=== PATIENT | female | born 1955 | race Hispanic/Latino ===

== ENCOUNTER 2017-08-21 11:05 | Emergency (ER) | payer MEDICAID ==
[~2017-08-21 11:05] MED LIST: ATOR10 PO; CITA40TA6 PO; CLOP75TA14 PO; EZET10 PO; LINA5TAB PO; METF-526 PO; PANT40TA25 PO; RISP0.2515 PO; RISP0.5T50 PO; SOLI5 PO
== END 2017-08-21 13:32 | disposition home or self-care (01) ==
LOC: EDH 11:05
DX: N76.6 Ulceration of vulva (principal); I25.10 Atherosclerotic heart disease of native coronary artery without angina pectoris; E11.9 Type 2 diabetes mellitus without complications; I10 Essential (primary) hypertension

== ENCOUNTER 2019-08-17 14:19 | Emergency (ER) | payer MEDICAID ==
[~2019-08-17 14:19] MED LIST changes: +ASPI-1181 PO; +BUSP7.5T7 PO; -EZET10 PO; +EZET10TA13 PO
[2019-08-17 15:12] LABS: BASOPHILS % (AUTO) 0.3 % (0.0-5.0); EOSINOPHILS % (AUTO) 3.2 % (0.0-8.0); HEMATOCRIT 29.2 % (36-48); LYMPHOCYTES % (AUTO) 22.4 % (21.0-51.0); MEAN CORPUSCULAR HEMOGLOBIN 23.2 pg (27.0-33.0); MEAN CORPUSCULAR HGB CONC 29.8 g/dL (32.0-36.0); MEAN CORPUSCULAR VOLUME 77.9 fL (79-99); MONOCYTES % (AUTO) 6.3 % (3.0-13.0); NEUTROPHILS % (AUTO) 67.6 % (40.0-77.0); PLATELET COUNT (AUTO) 420 K/uL (130-400); RED BLOOD CELL COUNT(AUTO) 3.75 MIL/uL (4.00-5.50); RED CELL DISTRIBUTION WIDTH 22.2 % (11.0-15.5); WHITE BLOOD COUNT (AUTO) 9.1 K/uL (4.8-10.8)
[2019-08-17 15:28] LABS: INR 1.04 (0.85-1.15); PARTIAL THROMBOPLASTIN TIME 26.6 SEC (26.3-35.5); PROTHROMBIN TIME 10.9 SEC (9.6-11.6)
[2019-08-17 15:36] LABS: CREATININE 0.6 mg/dL (0.5-1.5); POTASSIUM 3.9 mmol/L (3.5-5.1)
[2019-08-17 15:41] LABS: ALBUMIN 3.5 g/dL (3.5-5.0); BILIRUBIN,TOTAL 0.3 mg/dL (0.2-1.0); TOTAL PROTEIN, SERUM 8.1 g/dL (6.0-8.3)
== END 2019-08-17 19:08 | disposition home or self-care (01) ==
LOC: EDH 14:19
DX: T81.30XA Disruption of wound, unspecified, initial encounter (principal); L76.22 Postprocedural hemorrhage of skin and subcutaneous tissue following other procedure; E11.9 Type 2 diabetes mellitus without complications; I10 Essential (primary) hypertension; Z98.890 Other specified postprocedural states; Z86.73 Personal history of transient ischemic attack (TIA), and cerebral infarction without residual deficits
CPT/HCPCS: 36415; 80053; 85025; 85610; 85730

== ENCOUNTER 2019-09-16 12:36 | Inpatient (IN) | payer MEDICAID ==
[~2019-09-16] VITALS: Ht 157.5 cm; Wt 82.1 kg
[2019-09-16 13:02] LABS: BASOPHILS % (AUTO) 0.2 % (0.0-5.0); LYMPHOCYTES % (AUTO) 5.3 % (21.0-51.0); MEAN CORPUSCULAR HEMOGLOBIN 22.2 pg (27.0-33.0); MEAN CORPUSCULAR HGB CONC 27.1 g/dL (32.0-36.0); MEAN CORPUSCULAR VOLUME 81.6 fL (79-99); MONOCYTES % (AUTO) 2.3 % (3.0-13.0); NEUTROPHILS % (AUTO) 91.4 % (40.0-77.0); NUCLEATED RED BLOOD CELLS 0.3 % (0.0-0.19); PLATELET COUNT (AUTO) 413 K/uL (130-400); RED BLOOD CELL COUNT(AUTO) 1.58 MIL/uL (4.00-5.50); RED CELL DISTRIBUTION WIDTH 16.9 % (11.0-15.5)
[2019-09-16 13:05] LABS: HEMATOCRIT 12.9 % (36-48)
[2019-09-16 13:12] LABS: POTASSIUM 3.9 mmol/L (3.5-5.1)
[2019-09-16 13:14] LABS: INR 1.06 (0.85-1.15); PARTIAL THROMBOPLASTIN TIME 21.8 SEC (26.3-35.5); PROTHROMBIN TIME 11.4 SEC (9.6-11.6)
[2019-09-16 13:17] LABS: ALBUMIN 2.8 g/dL (3.5-5.0); BILIRUBIN,TOTAL 0.2 mg/dL (0.2-1.0); TOTAL PROTEIN, SERUM 6.8 g/dL (6.0-8.3)
[2019-09-16 13:36] LABS: LYMPHOCYTES % (MANUAL) 4 % (22-44); MAN.DIFF COMMENT-IMPRESSION MANUAL DIFFERENTIAL; MONOCYTES % (MANUAL) 1 % (2-9); SEGMENTED NEUTROPHILS % 95 % (40-70)
[2019-09-16 13:37] LABS: PLATELET MORPHOLOGY COMMENT SLIGHT INCREASED
[2019-09-16] MEDS ORDERED: SODIUM CHLORIDE 0.9% 250 ML IV ONE (14:06)
[2019-09-16] MEDS ORDERED: PANTOPRAZOLE SODIUM 80 MG in SODIUM CHLORIDE 0.9% 100 ML IV SCH (16:30)
[2019-09-16] MEDS ORDERED: ACETAMINOPHEN 325 MG TAB PO PRN (16:30)
[2019-09-16] MEDS ORDERED: ONDANSETRON HCL 4 MG/2 ML VIAL IVP PRN (16:30)
[2019-09-16] MEDS ORDERED: SODIUM CHLORIDE 0.9% 1000ML 1,000 ML IV ONE (18:51)
[2019-09-16 21:09] LABS: HEMATOCRIT 21.2 % (36-48)
[2019-09-17] MEDS ORDERED: SODIUM CHLORIDE 0.9% 100 ML IV ONE (04:29)
[2019-09-17] MEDS ORDERED: GLIP10TA19 PO (06:44)
[2019-09-17] MEDS ORDERED: SOLI5TAB6 PO (06:44)
[2019-09-17] MEDS ORDERED: FERR-82 PO (06:44)
[2019-09-17 07:59] LABS: HEMATOCRIT 22.6 % (36-48)
[2019-09-17] MEDS ORDERED: METHYLPREDNISOLONE SOD SUCC 40MG/ML 1ML ONE (08:41)
[2019-09-17] MEDS ORDERED: OSELTAMIVIR PHOSPHATE 75 MG CAP ONE (08:41)
[2019-09-17 12:10] VITALS: BP 160/60
[2019-09-17 12:51] VITALS: BP 142/69
[2019-09-17] MEDS: SODIUM CHLORIDE 0.9% 1000ML 1,000 ML IV SCH ×2 (13:30→23:20)
--- NOTE | 2019-09-17 14:07 | NUR ---
INITIAL Patient lives with spouse, Theo Stanley, [phone]. Patient has [facility] X 3 a week. PHC with [facility] X 48 1/2 hours a week. DME: wheelchair, hospital bed, shower chair, BPM, glucometer (no insulin). Patient needs help with ADL's and does not drive. Family assisted with transportation. PCP is Dr. Tay Hernandez. Pharmacy is [facility] located in [place]. DCP is home. Addendum: 09/17/19 at 1410 by MIKE HALL SS Amended: Links added.
[2019-09-17] MEDS ORDERED: EPOETIN ALFA 10,000 UNIT/ML VIAL SQ SCH (14:30)
[2019-09-17] MEDS ORDERED: IRON SUCROSE COMPLEX 300 MG in SODIUM CHLORIDE 0.9% 250 ML IV SCH (14:30)
[2019-09-17] MEDS ORDERED: COMPOUND IV MISC 1 EACH IVSOLN MISC PRN (15:30)
[2019-09-17 16:33] VITALS: BP 134/66
[2019-09-17 17:42] LABS: HEMATOCRIT 24.9 % (36-48)
[2019-09-17 19:40] VITALS: BP 132/65
[2019-09-17] MEDS: PANTOPRAZOLE SODIUM 40 MG TABLET.DR PO SCH (22:03)
[2019-09-18] VITALS (7 sets, daily range): BP systolic 105–163; BP diastolic 58–77
[2019-09-18 00:27] LABS: HEMATOCRIT 20.6 % (36-48)
--- NOTE | 2019-09-18 00:30 | NUR ---
JENSEN Delvalle CLINICAL LABORATORY MANAGER PAGED REGARDING [facility] CALL, ORDER RECEIVED AND PLACED IN COMPUTER [id number]-[id number] TO FIND ON PATIENT BLOOD BAND, LAB CALLED AND WILL ORDER AND DRAW ANOTHER TYPE AND SCREEN.
[2019-09-18] MEDS ORDERED: SODIUM CHLORIDE 0.9% 100 ML IV ONE (01:13)
[2019-09-18] MEDS: SODIUM CHLORIDE 0.9% 1000ML 1,000 ML IV SCH (07:38)
[2019-09-18 08:33] LABS: BASOPHILS % (AUTO) 0.4 % (0.0-5.0); EOSINOPHILS % (AUTO) 7.3 % (0.0-8.0); HEMATOCRIT 25.2 % (36-48); LYMPHOCYTES % (AUTO) 23.3 % (21.0-51.0); MEAN CORPUSCULAR HEMOGLOBIN 26.5 pg (27.0-33.0); MEAN CORPUSCULAR HGB CONC 31.7 g/dL (32.0-36.0); MEAN CORPUSCULAR VOLUME 83.4 fL (79-99); MONOCYTES % (AUTO) 7.8 % (3.0-13.0); NEUTROPHILS % (AUTO) 60.2 % (40.0-77.0); PLATELET COUNT (AUTO) 369 K/uL (130-400); RED BLOOD CELL COUNT(AUTO) 3.02 MIL/uL (4.00-5.50); RED CELL DISTRIBUTION WIDTH 16.1 % (11.0-15.5); WHITE BLOOD COUNT (AUTO) 8.2 K/uL (4.8-10.8)
[2019-09-18] MEDS ORDERED: IRON SUCROSE COMPLEX 400 MG in SODIUM CHLORIDE 0.9% 250 ML IV SCH (09:00)
[2019-09-18] MEDS: PANTOPRAZOLE SODIUM 40 MG TABLET.DR PO SCH ×2 (09:21→21:50)
[2019-09-18 09:23] LABS: CREATININE 0.7 mg/dL (0.5-1.5); POTASSIUM 3.4 mmol/L (3.5-5.1)
[2019-09-18 16:06] LABS: HEMATOCRIT 27.4 % (36-48)
--- NOTE | 2019-09-18 17:50 | NUR ---
DR. Hoffmann IS ROUNDING ON THIS PATIENT AT THIS TIME. ASKED FOR PREVIOUS PATHOLOGY REPORT AND FOUND DOCS IN HPF/ONE CONTENT. RELAYED RESULTS TO MD. PER DR. Hoffmann, PATHOLOGY RESULTS NEED TO BE REPORTED TO DR. ROSENBAUM TOMORROW.
[2019-09-18 20:01] LABS: HEMATOCRIT 27.8 % (36-48)
[2019-09-18] MEDS ORDERED: RISPERIDONE 0.5 MG TABLET PO SCH (21:00)
[2019-09-18] MEDS ORDERED: BUSPIRONE HCL 5 MG TABLET PO PRN (21:00)
[2019-09-18] MEDS ORDERED: ATORVASTATIN CALCIUM 10 MG TABLET PO SCH (21:00)
[2019-09-19 04:00] VITALS: BP 145/70
[2019-09-19 04:17] LABS: BASOPHILS % (AUTO) 0.6 % (0.0-5.0); EOSINOPHILS % (AUTO) 5.1 % (0.0-8.0); HEMATOCRIT 27.7 % (36-48); LYMPHOCYTES % (AUTO) 23.4 % (21.0-51.0); MEAN CORPUSCULAR HEMOGLOBIN 26.4 pg (27.0-33.0); MEAN CORPUSCULAR HGB CONC 31.4 g/dL (32.0-36.0); MEAN CORPUSCULAR VOLUME 84.2 fL (79-99); MONOCYTES % (AUTO) 7.3 % (3.0-13.0); NEUTROPHILS % (AUTO) 62.4 % (40.0-77.0); NUCLEATED RED BLOOD CELLS 0.7 % (0.0-0.19); PLATELET COUNT (AUTO) 424 K/uL (130-400); RED BLOOD CELL COUNT(AUTO) 3.29 MIL/uL (4.00-5.50); RED CELL DISTRIBUTION WIDTH 17.2 % (11.0-15.5); WHITE BLOOD COUNT (AUTO) 8.6 K/uL (4.8-10.8)
[2019-09-19 04:37] LABS: CREATININE 0.6 mg/dL (0.5-1.5)
[2019-09-19] MEDS: SODIUM CHLORIDE 0.9% 1000ML 1,000 ML IV SCH (05:31)
[2019-09-19 07:00] VITALS: BP 144/71
[2019-09-19] MEDS ORDERED: LIDOCAINE HCL-MPF 1% 2ML VIAL IV PRN (07:00)
[2019-09-19] MEDS ORDERED: POTASSIUM CHLORIDE 20 MEQ ERTAB PO PRN (07:00)
[2019-09-19] MEDS ORDERED: POTASSIUM CHLORIDE 20MEQ/100ML 100 ML IV PRN (07:00)
[2019-09-19] MEDS: FERROUS SULFATE 325 MG TABLET.DR PO SCH ×2 (08:00→09:00)
[2019-09-19] MEDS: METFORMIN HCL 500 MG TAB.SR.24H PO SCH ×3 (08:00→17:00)
[2019-09-19] MEDS ORDERED: CITALOPRAM 20 MG TABLET PO SCH (09:00)
[2019-09-19] MEDS ORDERED: RISPERIDONE 0.25 MG PO SCH (09:00)
[2019-09-19] MEDS ORDERED: GLIPIZIDE XL 10MG TAB PO SCH (09:00)
[2019-09-19] MEDS ORDERED: FERROUS SULFATE 325 MG TABLET.DR PO SCH (09:00)
[2019-09-19] MEDS: PANTOPRAZOLE SODIUM 40 MG TABLET.DR PO SCH (09:00)
[2019-09-19 11:00] VITALS: BP 127/69
[2019-09-19] MEDS ORDERED: FERR-82 PO (15:43)
[2019-09-19 16:09] VITALS: BP 114/50
--- NOTE | 2019-09-19 19:23 | NUR ---
CM NOTE faxed prior auth form for ambulance to [facility] form filled and faxed ,approval received from David lieberman to proceed with EMS transport. updated primary nurse
[2019-09-19] MEDS ORDERED: RISPERIDONE 0.5 MG TABLET PO SCH (21:00)
== END 2019-09-19 20:50 | disposition home or self-care (01) | DRG 241 ==
LOC: EDH 12:36 → EDHIP 12:37 → 2DH 09-17 12:28
PROVIDERS: ADMIT Internal Medicine; ATTEND Internal Medicine
PROC: 30233N1 Transfusion of Nonautologous Red Blood Cells into Peripheral Vein, Percutaneous Approach (ICD-10-PCS; principal; 2019-09-16)
PROC: 0DJ08ZZ Inspection of Upper Intestinal Tract, Via Natural or Artificial Opening Endoscopic (ICD-10-PCS; 2019-09-17)
DX: K29.01 Acute gastritis with bleeding (principal); D62 Acute posthemorrhagic anemia; I69.351 Hemiplegia and hemiparesis following cerebral infarction affecting right dominant side; K25.4 Chronic or unspecified gastric ulcer with hemorrhage; E11.9 Type 2 diabetes mellitus without complications; N76.5 Ulceration of vagina; I10 Essential (primary) hypertension; E66.9 Obesity, unspecified; Z68.33 Body mass index [BMI] 33.0-33.9, adult; Z82.0 Family history of epilepsy and other diseases of the nervous system; Z83.3 Family history of diabetes mellitus; Z82.5 Family history of asthma and other chronic lower respiratory diseases; Z82.3 Family history of stroke; Z82.49 Family history of ischemic heart disease and other diseases of the circulatory system; R55 Syncope and collapse
CPT/HCPCS: 36415; 36430; 43235; 71045; 76856; 80048; 80053; 82270; 82550; 82948; 83540; 83550; 84484; 85014; 85018; 85025; 85610; 85730; 86677; 86850; 86900; 86901; 86922; 93005; C9113; G0378; J0885; J1756; J2920; J3480; J3490; J7030; P9016

== ENCOUNTER 2019-10-06 02:11 | Inpatient (IN) | payer MEDICAID ==
[~2019-10-06 02:11] MED LIST changes: -ASPI-1181 PO; +ASPI-1443 PO; +FERR-82 PO; +GLIP10TA19 PO; -PANT40TA25 PO; +PANT40TA54 PO; +SOLI5TAB6 PO
[2019-10-06 02:56] LABS: BASOPHILS % (AUTO) 0.3 % (0.0-5.0); EOSINOPHILS % (AUTO) 1.4 % (0.0-8.0); HEMATOCRIT 24.1 % (36-48); LYMPHOCYTES % (AUTO) 16.9 % (21.0-51.0); MEAN CORPUSCULAR HEMOGLOBIN 28.8 pg (27.0-33.0); MEAN CORPUSCULAR HGB CONC 31.5 g/dL (32.0-36.0); MEAN CORPUSCULAR VOLUME 91.3 fL (79-99); MONOCYTES % (AUTO) 4.3 % (3.0-13.0); NEUTROPHILS % (AUTO) 76.5 % (40.0-77.0); PLATELET COUNT (AUTO) 385 K/uL (130-400); RED BLOOD CELL COUNT(AUTO) 2.64 MIL/uL (4.00-5.50); RED CELL DISTRIBUTION WIDTH 18.1 % (11.0-15.5); WHITE BLOOD COUNT (AUTO) 11.7 K/uL (4.8-10.8)
[2019-10-06 03:05] LABS: INR 1.01 (0.85-1.15); PARTIAL THROMBOPLASTIN TIME 21.9 SEC (26.3-35.5); PROTHROMBIN TIME 10.9 SEC (9.6-11.6)
[2019-10-06 03:06] LABS: CARBON DIOXIDE 29 mmol/L (21-32); CHLORIDE 102 mmol/L (101-111); CREATININE 1.1 mg/dL (0.5-1.5); GLUCOSE,RANDOM 235 mg/dL (70-105); POTASSIUM 3.7 mmol/L (3.5-5.1); SODIUM SERUM 136 mmol/L (136-145); UREA NITROGEN, BLOOD 26 mg/dL (7-18)
[2019-10-06 03:12] LABS: ALANINE AMINOTRANSFERASE 11 U/L (12-78); ALBUMIN 2.5 g/dL (3.5-5.0); ASPARTATE AMINOTRANSFERASE 5 U/L (10-37); BILIRUBIN,TOTAL 0.2 mg/dL (0.2-1.0); CREATINE KINASE, TOTAL 17 U/L (21-232); TOTAL PROTEIN, SERUM 6.1 g/dL (6.0-8.3)
[2019-10-06 03:28] LABS: APPEARANCE,URINE Turbid (CLEAR); BILIRUBIN,URINE Negative (NEGATIVE); COLOR,URINE Dark Yellow (YELLOW); GLUCOSE, URINE (UA) Negative (NEGATIVE); KETONES,URINE Trace mg/dL (NEGATIVE); LEUKOCYTE ESTERASE ,URINE Large (NEGATIVE); NITRATE,URINE Negative (NEGATIVE); OCCULT BLOOD,URINE Moderate (NEGATIVE); PROTEIN,URINE POS 1+ mg/dL (NEGATIVE)
[2019-10-06] MEDS ORDERED: ONDANSETRON HCL 4 MG/2 ML VIAL IV PRN (03:30)
[2019-10-06] MEDS ORDERED: MORPHINE SULFATE 2 MG/ML 1ML SYG IV PRN (03:30)
[2019-10-06] MEDS ORDERED: LACTULOSE 20 GM/30 ML UDCUP PO PRN (03:30)
[2019-10-06] MEDS ORDERED: ACETAMINOPHEN 325 MG TAB PO PRN ×2 (03:30)
[2019-10-06 03:42] LABS: BACTERIA,URINE Many /HPF (None Seen); WBC,URINE 26-50 /HPF (0-1)
[2019-10-06] MEDS ORDERED: FAMOTIDINE/PF 20 MG/2 ML VIAL IV ONE (03:46)
[2019-10-06] MEDS ORDERED: ONDANSETRON HCL 4 MG/2 ML VIAL ONE (03:56)
[2019-10-06] MEDS ORDERED: METOCLOPRAMIDE 10 MG/2 ML VIAL ONE (04:06)
[2019-10-06] MEDS ORDERED: CEFTRIAXONE SODIUM 1 GM ONE (04:29)
[2019-10-06 05:50] VITALS: BP 96/50
[2019-10-06] MEDS ORDERED: PANTOPRAZOLE SODIUM 80 MG in SODIUM CHLORIDE 0.9% 100 ML IV SCH (06:00)
[2019-10-06] MEDS: CEFTRIAXONE SODIUM 1 GM IVP SCH (06:00)
[2019-10-06] MEDS: SODIUM CHLORIDE 0.9% 1000ML 1,000 ML IV SCH ×3 (06:45→23:24)
[2019-10-06] MEDS: INSULIN HUMULIN R 100 UNIT/ML 3ML SQ SCH ×4 (06:53→21:00)
[2019-10-06 07:05] LABS: HEMATOCRIT 30.4 % (36-48)
[2019-10-06 07:30] VITALS: BP 103/52
--- NOTE | 2019-10-06 08:17 | NUR ---
GRIFFIN Davis CALLED FOR L.A. RESULTS OF 3.3 ORDERS TO FOLLOW IVF MAINTAIN OF 75 [facility], AND LACTIC ACID LAB TO BE DONE AT 1700 TODAY.
--- NOTE | 2019-10-06 09:05 | NUR ---
DR. MCKINNEY WAS CALLED , FOR ONCOLOGY CONSULTATION . DATA GIVEN, PLACED ON HIS CENSES .
[2019-10-06 11:00] VITALS: BP 109/60
[2019-10-06 11:59] LABS: HEMATOCRIT 26.3 % (36-48)
[2019-10-06 16:07] VITALS: BP 98/51
--- NOTE | 2019-10-06 16:40 | NUR ---
DR. GRIDER CALLED . UPDATE GIVEN, REGARDING, DR. MCKINNEY ,EVAL. AND PT IS NOT HAVING ACTIVE BLEEDING, FROM HER LABIA . , AREA WILL SPEAK WITH DR. MCKINNEY REGARDING HER HX , AT PRESENT , WILL KEEP ASSESSING ANY BLEEDING . FROM SITE, NO ORDERS ,
--- NOTE | 2019-10-06 16:55 | NUR ---
INITIAL SW spoke with patient's spouse, hTeo Stanley, [phone]. He states that patient has [facility] X 3 week for wound care. PHC with [facility] X 48.5 hours a week. DME: glucometer (no insulin) shower chair, hospital bed, wheelchair. Patient is bed bound and unable to complete ADL's without assistance. PCP is Dr. Tay Hernandez from [facility]. Pharmacy is [facility] located in [place]. DCP is home. Addendum: 10/06/19 at 1658 by MIKE HALL SS Amended: Links added.
[2019-10-06 18:01] LABS: HEMATOCRIT 24.8 % (36-48)
[2019-10-06 19:39] VITALS: BP 107/55
[2019-10-06 23:26] VITALS: BP 121/46
[2019-10-07 03:20] VITALS: BP 96/48
[2019-10-07] MEDS: CEFTRIAXONE SODIUM 1 GM IVP SCH (04:09)
[2019-10-07 04:44] LABS: BASOPHILS % (AUTO) 0.6 % (0.0-5.0); EOSINOPHILS % (AUTO) 1.4 % (0.0-8.0); HEMATOCRIT 23.5 % (36-48); LYMPHOCYTES % (AUTO) 32.9 % (21.0-51.0); MEAN CORPUSCULAR HEMOGLOBIN 28.6 pg (27.0-33.0); MEAN CORPUSCULAR HGB CONC 30.2 g/dL (32.0-36.0); MEAN CORPUSCULAR VOLUME 94.8 fL (79-99); MONOCYTES % (AUTO) 6.4 % (3.0-13.0); NEUTROPHILS % (AUTO) 57.8 % (40.0-77.0); PLATELET COUNT (AUTO) 299 K/uL (130-400); RED BLOOD CELL COUNT(AUTO) 2.48 MIL/uL (4.00-5.50); RED CELL DISTRIBUTION WIDTH 17.4 % (11.0-15.5); WHITE BLOOD COUNT (AUTO) 6.4 K/uL (4.8-10.8)
[2019-10-07 05:03] LABS: ALBUMIN 2.3 g/dL (3.5-5.0); BILIRUBIN,TOTAL 0.1 mg/dL (0.2-1.0); CREATININE 0.7 mg/dL (0.5-1.5); POTASSIUM 3.6 mmol/L (3.5-5.1); TOTAL PROTEIN, SERUM 5.5 g/dL (6.0-8.3)
[2019-10-07] MEDS: INSULIN HUMULIN R 100 UNIT/ML 3ML SQ SCH ×4 (06:09→21:00)
[2019-10-07] MEDS: SODIUM CHLORIDE 0.9% 1000ML 1,000 ML IV SCH (06:12)
--- NOTE | 2019-10-07 07:08 | NUR ---
PATIENT HAS BEEN WAFER SUBSTRATE TESTER TO GI LAB
[2019-10-07 07:30] VITALS: BP 130/64
[2019-10-07 11:00] VITALS: BP 110/53
[2019-10-07] MEDS ORDERED: COMPOUND IV MISC 1 EACH IVSOLN MISC PRN (11:00)
--- NOTE | 2019-10-07 12:01 | NUR ---
TELEPHONE CONSENT FOR BLOOD TRANSFUSION GIVEN, WITNESSED BY CHARGE NURSE SRINIVASA AND CO WORKER YARY. UNIT OF BLOOD UP NOW, WILL MONITOR FOR S/S OF REACTION.
[2019-10-07] MEDS: IRON SUCROSE COMPLEX 100 MG in SODIUM CHLORIDE 0.9% 50 ML IV SCH (12:08)
--- NOTE | 2019-10-07 14:16 | NUR ---
TALKED TO ANDREE KISER TO DISCHARGE PT. FROM HIS STANDPOINT, FOLLOW UP WITH HIM IN 3 TO 4 WEEKS.
--- NOTE | 2019-10-07 14:20 | NUR ---
UNIT OF BLOOD NOW COMPLETE, NO ADVERSE REACTION .
[2019-10-07 16:00] VITALS: BP 125/61
--- NOTE | 2019-10-07 16:00 | NUR ---
GI CONSULT ORDERED. CALLED OFFICE AND FAXED INFO. TO OFFICE.NOT IN AND HIS #PROVIDED,ANSWERED CALL AND AFTER INFO GIVEN WAS NOT SATISFIED WITH ANSWER, COULDN'T RELATE DX REASON FOR GI CONSULT. BASICALLY. BOTTOM LINE WAS NOT GOING TO SEE REBECCA GARCIA, NOTIFIED
[2019-10-07 20:00] VITALS: BP 102/50
[2019-10-08] VITALS: BP 132/63
[2019-10-08 03:42] VITALS: BP 112/53
[2019-10-08] MEDS: CEFTRIAXONE SODIUM 1 GM IVP SCH (04:20)
[2019-10-08 04:50] LABS: BASOPHILS % (AUTO) 0.7 % (0.0-5.0); EOSINOPHILS % (AUTO) 2.6 % (0.0-8.0); HEMATOCRIT 28.3 % (36-48); LYMPHOCYTES % (AUTO) 19.8 % (21.0-51.0); MEAN CORPUSCULAR HEMOGLOBIN 28.4 pg (27.0-33.0); MEAN CORPUSCULAR HGB CONC 31.1 g/dL (32.0-36.0); MEAN CORPUSCULAR VOLUME 91.3 fL (79-99); MONOCYTES % (AUTO) 8.5 % (3.0-13.0); NEUTROPHILS % (AUTO) 67.7 % (40.0-77.0); PLATELET COUNT (AUTO) 312 K/uL (130-400); RED CELL DISTRIBUTION WIDTH 18.9 % (11.0-15.5); WHITE BLOOD COUNT (AUTO) 6.9 K/uL (4.8-10.8)
[2019-10-08 05:13] LABS: ALBUMIN 2.7 g/dL (3.5-5.0); BILIRUBIN,TOTAL 0.3 mg/dL (0.2-1.0); CREATININE 0.6 mg/dL (0.5-1.5); POTASSIUM 3.3 mmol/L (3.5-5.1); TOTAL PROTEIN, SERUM 6.3 g/dL (6.0-8.3)
[2019-10-08] MEDS: INSULIN HUMULIN R 100 UNIT/ML 3ML SQ SCH ×4 (07:08→21:00)
[2019-10-08 08:28] VITALS: BP 137/64
[2019-10-08] MEDS: IRON SUCROSE COMPLEX 100 MG in SODIUM CHLORIDE 0.9% 50 ML IV SCH (08:42)
--- NOTE | 2019-10-08 09:00 | NUR ---
GI CONSULT SPOKE TO DR VERMA, GIVEN PATIENT STATUS REPORT. DR VERMA ADVISED NO INTERVENTION AT THIS TIME. PATIENT HAD AN ENDOSCOPY LAST MONTH WITH DR SUAREZ ACCORDING TO . THERE HAS BEEN NO ACTIVE BLEED NOTED IN STOOL AT THIS TIME, PATIENT DID COME IN WITH A LABIAL BLEED AT TIME OF ADMISSION. PATIENT IS ALSO BEING SEEN BY MANAGER MUTUAL FUND.
[2019-10-08 11:23] VITALS: BP 127/62
[2019-10-08 16:21] VITALS: BP 134/46
[2019-10-08 20:00] VITALS: BP 112/57
[2019-10-09] MEDS ORDERED: POTASSIUM CHLORIDE 20MEQ/100ML 100 ML IV PRN (00:15)
[2019-10-09] MEDS ORDERED: LIDOCAINE HCL-MPF 1% 2ML VIAL IV PRN (00:15)
[2019-10-09] MEDS ORDERED: POTASSIUM CHLORIDE 20 MEQ ERTAB PO PRN (00:15)
[2019-10-09] MEDS ORDERED: POTASSIUM CHLORIDE 10% ELIXIR 20 MEQ/15 ML UDCUP PO PRN (00:15)
[2019-10-09] MEDS ORDERED: POTASSIUM CHLORIDE 20 MEQ ERTAB PO ONE (00:17)
[2019-10-09 00:57] VITALS: BP 101/38
[2019-10-09] MEDS: CEFTRIAXONE SODIUM 1 GM IVP SCH (03:56)
[2019-10-09 04:24] VITALS: BP 120/63
[2019-10-09 04:54] LABS: BASOPHILS % (AUTO) 0.9 % (0.0-5.0); EOSINOPHILS % (AUTO) 2.6 % (0.0-8.0); HEMATOCRIT 27.3 % (36-48); LYMPHOCYTES % (AUTO) 35.3 % (21.0-51.0); MEAN CORPUSCULAR HEMOGLOBIN 28.5 pg (27.0-33.0); MEAN CORPUSCULAR HGB CONC 31.9 g/dL (32.0-36.0); MEAN CORPUSCULAR VOLUME 89.5 fL (79-99); MONOCYTES % (AUTO) 9.2 % (3.0-13.0); NEUTROPHILS % (AUTO) 51.6 % (40.0-77.0); PLATELET COUNT (AUTO) 333 K/uL (130-400); RED BLOOD CELL COUNT(AUTO) 3.05 MIL/uL (4.00-5.50); RED CELL DISTRIBUTION WIDTH 18.5 % (11.0-15.5); WHITE BLOOD COUNT (AUTO) 5.7 K/uL (4.8-10.8)
[2019-10-09 05:10] LABS: ALBUMIN 2.7 g/dL (3.5-5.0); BILIRUBIN,TOTAL 0.3 mg/dL (0.2-1.0); CREATININE 0.6 mg/dL (0.5-1.5); POTASSIUM 3.9 mmol/L (3.5-5.1); TOTAL PROTEIN, SERUM 6.3 g/dL (6.0-8.3)
[2019-10-09] MEDS: SODIUM CHLORIDE 0.9% 1000ML 1,000 ML IV SCH (05:26)
[2019-10-09] MEDS: INSULIN HUMULIN R 100 UNIT/ML 3ML SQ SCH ×3 (07:30→16:27)
[2019-10-09 08:00] VITALS: BP 133/70
[2019-10-09 08:24] VITALS: BP 133/70
[2019-10-09] MEDS: IRON SUCROSE COMPLEX 100 MG in SODIUM CHLORIDE 0.9% 50 ML IV SCH (08:40)
[2019-10-09] MEDS ORDERED: CEPH500T PO (10:03)
[2019-10-09 10:59] VITALS: BP 100/55
--- NOTE | 2019-10-09 12:40 | NUR ---
DR SALVADOR ON FLOOR , AFTER TIME OUT TO REVIEW LABS , US AND CONSENT , PREFORMED THORACENTESIS WITH 950 CC OF FLUID COLLECTED, ORDERES PLACED BY HIS FISHER PURSE SEINE AND FLUID COLLECTION LABELED AND TAKING TO LAB, PATIENT ON POST -PROCURED VITAL , DENIES PAIN SITE HELD PRESSURED THEN SITE DRESSED. WILL CONTINUE TO MONITOR Addendum: 10/09/19 at 1437 by WADE SALOMON RN RN CHARTED ON WRONG PATIENT
--- NOTE | 2019-10-09 12:45 | NUR ---
ORDERS FROM DR SALVADOR TO OBTAIN CHEST CT WITH CONTRAST, ORDERS PLACED
--- NOTE | 2019-10-09 14:10 | NUR ---
PATIENT OFF UNIT FOR CT SCAN Addendum: 10/09/19 at 1451 by WADE SALOMON RN RN CHARTED ON WRONG PATIENT
--- NOTE | 2019-10-09 14:34 | NUR ---
PATIENT BACK ON UNIT FOR FROM CT Addendum: 10/09/19 at 1450 by WADE SALOMON RN RN CHART ON WRONG PATIENT
--- NOTE | 2019-10-09 14:38 | NUR ---
CHARTED ON WRONG PATIENT
[2019-10-09 16:00] VITALS: BP 146/69
--- NOTE | 2019-10-09 17:00 | NUR ---
cm note called by nurse pt requires ems for transport, faxed request to [employer]icaid [employer], and ems form faxed to [facility]. report given to primary nurse lauren.
--- NOTE | 2019-10-09 17:30 | NUR ---
EMS HERE TO CRACKER AND COOKIE MACHINE OPERATOR PATIENT FOR TRANSPORT TO HOME , GIVEN DISCHARGE PAPER WORK PATIENT BELONGINGS AND EMS FORMS TO EMS PERSONAL , IV REMOVED AND SITE DRESSED , TELEMETRY WAS REMOVED AND SENT TO MONITOR UNIT, PATIENT IS CONFUSED , CALLED AND WAS NOTIFIED THAT HIS WAS DA DISCHARGE TODAY AND HE SAID SHE HAS TO BE TRANSPORTED BY EMS AND WAS TOLD SHE WAS COMING HOME BY EMS. NO QUESTIONS OR CONCERNS AT THIS TIME VOICED. PATIENT LEFT WITH EMS FOR HOME.
== END 2019-10-09 17:55 | disposition home or self-care (01) | DRG 253 ==
LOC: EDH 02:11 → EDHIP 02:12 → 3CH 05:27
PROVIDERS: ADMIT Internal Medicine; ATTEND Internal Medicine
PROC: 30233N1 Transfusion of Nonautologous Red Blood Cells into Peripheral Vein, Percutaneous Approach (ICD-10-PCS; principal; 2019-10-06)
DX: K92.2 Gastrointestinal hemorrhage, unspecified (principal); E87.2 Acidosis; E44.1 Mild protein-calorie malnutrition; E11.22 Type 2 diabetes mellitus with diabetic chronic kidney disease; I69.351 Hemiplegia and hemiparesis following cerebral infarction affecting right dominant side; B96.1 Klebsiella pneumoniae [K. pneumoniae] as the cause of diseases classified elsewhere; D64.9 Anemia, unspecified; E78.00 Pure hypercholesterolemia, unspecified; G30.9 Alzheimer's disease, unspecified; F02.80 Dementia in other diseases classified elsewhere, unspecified severity, without behavioral disturbance, psychotic disturbance, mood disturbance, and anxiety; N39.0 Urinary tract infection, site not specified; F32.9 Major depressive disorder, single episode, unspecified; I12.9 Hypertensive chronic kidney disease with stage 1 through stage 4 chronic kidney disease, or unspecified chronic kidney disease; N18.9 Chronic kidney disease, unspecified; F41.9 Anxiety disorder, unspecified; I25.10 Atherosclerotic heart disease of native coronary artery without angina pectoris; J44.9 Chronic obstructive pulmonary disease, unspecified; I25.2 Old myocardial infarction; Z74.01 Bed confinement status; Z79.82 Long term (current) use of aspirin; Z88.6 Allergy status to analgesic agent; Z88.8 Allergy status to other drugs, medicaments and biological substances; Z83.3 Family history of diabetes mellitus; Z81.8 Family history of other mental and behavioral disorders; Z82.49 Family history of ischemic heart disease and other diseases of the circulatory system; Z82.3 Family history of stroke; Z82.5 Family history of asthma and other chronic lower respiratory diseases; Z82.0 Family history of epilepsy and other diseases of the nervous system
CPT/HCPCS: 36415; 36430; 71045; 80053; 81001; 82270; 82550; 82948; 83605; 83883; 84484; 85014; 85018; 85025; 85610; 85730; 86334; 86850; 86900; 86901; 86922; 87077; 87088; 87186; 93005; 97039; C9113; G0378; J0696; J1756; J2405; J2765; J3490; J7030; P9016